=== PATIENT | female | born 1985 | race Two or more races ===

== ENCOUNTER 2024-10-25 05:20 | Day surgery (SDC) | payer OTHER ==
[2024-10-18 14:09] VITALS: BP 11/79
[~2024-10-25] VITALS: Ht 149.9 cm; Wt 77.1 kg
[~2024-10-25 05:20] MED LIST: ALLEGRA ALLERG180 MG PO; COZAAR25 MG PO; HYDRODIURIL12.5 MG PO; IRON325 MG; VITAMIN D
[2024-10-25] MEDS ORDERED: IBU600 MG PO (08:20)
== END 2024-10-25 11:35 | disposition home or self-care (01) ==
LOC: CIR.AMB 05:20
PROVIDERS: ATTEND Obstetrics & Gynecology Gynecology
DX: N84.0 Polyp of corpus uteri (principal); N92.1 Excessive and frequent menstruation with irregular cycle; I10 Essential (primary) hypertension; G47.30 Sleep apnea, unspecified